=== PATIENT | male | born 1985 | race Caucasian/White ===

== ENCOUNTER 2020-06-30 22:06 | Emergency (ER) | payer OTHER ==
[2020-06-30] MEDS: Iopamidol 755 Mg/ML 100 ML Bottle IV ONE (23:01)
[2020-06-30] MEDS: Morphine 4 MG/ML VIAL IVPUSH ONE (23:15)
[2020-06-30] MEDS: Sodium Chloride 0.9% 1,000 ML IV SCH (23:15)
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
[2020-07-01] MEDS: Ketorolac 30 MG/ML SDV IVPUSH STA (00:12)
[2020-07-01] MEDS: Cyclobenzaprine 10 MG Tab PO STA (00:13)
== END 2020-07-01 00:25 | disposition home or self-care (01) ==
LOC: FB.ED 22:06
DX: S16.1XXA Strain of muscle, fascia and tendon at neck level, initial encounter (principal); S39.012A Strain of muscle, fascia and tendon of lower back, initial encounter; S29.012A Strain of muscle and tendon of back wall of thorax, initial encounter; S20.213A Contusion of bilateral front wall of thorax, initial encounter; F19.10 Other psychoactive substance abuse, uncomplicated; V60.5XXA Driver of heavy transport vehicle injured in collision with pedestrian or animal in traffic accident, initial encounter
CPT/HCPCS: 36415; 70450; 71260; 72125; 74177; 80053; 80305-QW; 80307; 81001; 82150; 83690; 85025; 85610; 85730; 96374; 96375; 99284-25; A9270-GY; J1885; J2270; J7030; Q9967